=== PATIENT | female | born 2000 | race Caucasian/White ===

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

== ENCOUNTER 2022-01-12 09:12 | Outpatient (RCR) | payer BC | END 2022-01-12 12:00 | disposition home or self-care (01) | LOC: WSOT 09:12 | DX: S42.492D Other displaced fracture of lower end of left humerus, subsequent encounter for fracture with routine healing (principal); Z98.890 Other specified postprocedural states; Z87.81 Personal history of (healed) traumatic fracture ==